=== PATIENT | male | born 1945 | race Caucasian/White ===

== ENCOUNTER 2017-02-17 07:13 | Day surgery (SDC) | payer MEDICARE, BC ==
--- NOTE | 2017-02-03 08:11 | HP ---
CC: Dr. Delatorre * HISTORY AND PHYSICAL: DATE OF PLANNED ADMISSION AND SURGERY: 02/16/17 HISTORY OF PRESENT ILLNESS: Mr. Jon is a 71-year-old white male who is admitted with a large left hydrocele for surgical repair. I have been following Mr. Jon for several years because of bladder outlet obstruction and left scrotal swelling. He has been maintained on tamsulosin 0.4 mg daily with improvement in his voiding. The left scrotal swelling has progressed and has become more symptomatic and started to interfere with his physical activities. Because of the above history and after discussing the options of management, he decided to proceed with the left hydrocelectomy. PAST MEDICAL HISTORY AND SYSTEM REVIEW: He is in very good health. MEDICATIONS: He is on no other medication besides the tamsulosin. ALLERGIES: He denies any allergies to medications. FAMILY HISTORY: Relevant for his brother who had renal carcinoma at the age of 74. PHYSICAL EXAMINATION GENERAL: Pleasant, healthy, and fit looking white male. VITAL SIGNS: Blood pressure 120/70, pulse of 60. HEART: Regular and rhythmic. No murmurs. LUNGS: Clear. ABDOMEN: Soft. No masses, no tenderness and no CVA tenderness. EXTERNAL GENITALIA: He is not circumcised. There is moderate degree of phimosis. The right testis feels normal and there is no right inguinal hernia. There is diffuse soft swelling of the left hemiscrotum measuring about 10 to 12 cm in diameter. It is slightly tender to exam. There is no inguinal hernia noted. The swelling is consistent with a hydrocele, but he could have also a spermatocele. RECTAL: Showed moderately enlarged, but nonsuspicious prostate. IMPRESSION: 1. Moderately symptomatic left hydrocele, possible spermatocele. 2. Bladder outlet obstruction with good response to tamsulosin. PLAN: For left hydrocelectomy. I discussed the operation in detail with the patient. Some of the potential complications including infection and hematoma were discussed. The patient understands that there will be prolonged scrotal swelling after the surgery and it will take several weeks for the swelling to resolve. All his questions were answered. [id number]/[facility] #: [id number] SILVERIO
[~2017-02-17 07:13] MED LIST: Buffered Lidocaine 0.9% SYRIN* 5 ML/SYR SYRINGE INTRADERM ONE
[2017-02-17] MEDS ORDERED: cefTRIAXone(*) 1 GM ADVAN ONE (07:25)
[2017-02-17] MEDS ORDERED: Buffered Lidocaine 0.9% SYRIN* 5 ML/SYR SYRINGE ONE (07:25)
[2017-02-17] MEDS ORDERED: fentaNYL* 50 MCG/ML 2 ML VIAL (100 MCG VIAL) ONE ×2 (08:24→10:23)
[2017-02-17] MEDS ORDERED: Midazolam* 1 MG/ML 2 ML VIAL (2 MG) ONE ×2 (08:24→11:08)
[2017-02-17] MEDS ORDERED: Bupivacaine 0.5% SDV PF* 30 ML VIAL ONE ×2 (08:38→11:31)
[2017-02-17] MEDS ORDERED: Collodion (Flexible)* 120 ML BTL ONE (08:38)
[2017-02-17] MEDS ORDERED: Famotidine IV* 10 MG/ML 2 ML (20 mg) ONE ×2 (08:47→11:31)
[2017-02-17] MEDS ORDERED: Propofol* 10 MG/ML 20 ML BTL IV PUSH ONE (09:16)
[2017-02-17] MEDS ORDERED: Ketorolac INJ* 30 MG/ML 1 ML VIAL ONE (09:16)
[2017-02-17] MEDS ORDERED: Lidocaine 2% PF * 5 ML VIAL ONE (09:16)
[2017-02-17] MEDS ORDERED: Dexamethasone IV* 4 MG/ML 1 ML (4 MG) ONE ×2 (09:16→11:31)
[2017-02-17] MEDS ORDERED: EPHEDrine (Pressors)* 50 MG/ML VIAL ONE (09:20)
[2017-02-17] MEDS ORDERED: Acetaminophen TAB* 325 MG PO PRN (09:28)
[2017-02-17] MEDS ORDERED: fentaNYL* 50 MCG/ML 2 ML VIAL (100 MCG VIAL) IV PRN (09:28)
[2017-02-17] MEDS ORDERED: HYDROmorphone INJ* 1 MG/ML CARPUJECT SYRINGE IV PRN (09:28)
[2017-02-17] MEDS ORDERED: PROCHLORPERAZINE INJ 5 MG/ML 2 ML VIAL IV PRN (09:28)
[2017-02-17] MEDS ORDERED: HYDROcodone/ACETAMIN 5-325 MG* 1 TAB PO PRN (09:28)
[2017-02-17] MEDS ORDERED: DiMENhydriNATE IV* 50 MG/ML VIAL IV PUSH PRN (09:28)
[2017-02-17 11:01] VITALS: BP 119/76
[2017-02-17] MEDS ORDERED: Morphine PF AMP (0.5MG/ML)* 5 MG/10 ML AMP ONE (11:08)
[2017-02-17] MEDS ORDERED: Dexmedetomidine* 200 MCG/2 ML 2 ML VIAL ONE (11:32)
--- NOTE | 2017-02-17 21:34 | OP ---
CC: Dr. Delatorre* OPERATIVE REPORT: DATE OF OPERATION: 02/17/17 - SDS DATE OF : 41 SURGEON: Garrison Carlos MD ANESTHESIOLOGIST: Edwina Yost MD ANESTHESIA: General. PRE-OP DIAGNOSIS: Left hydrocele. POST-OP DIAGNOSIS: Multiloculated left spermatocele. OPERATIVE PROCEDURE: 1. Left scrotal exploration. 2. Left spermatocelectomies. INDICATIONS: Mr. Jon is a 71-year-old white male, who had a long history of left scrotal enlargement. More recently, it became symptomatic and partially interfering with his physical activities. Physical examination showed a 12-cm diameter transilluminating cystic lesion in the left scrotum consistent with a hydrocele. Because of the above history and findings, surgical correction was advised and accepted. PATHOLOGY: Upon left scrotal exploration, there was a large spermatocele measuring about 10 to 12 cm in diameter. There were 2 smaller spermatoceles measuring about 1 cm each. There was no hydrocele noted. The testis looked normal. The hemoclips from vasectomy were noted. There was no inguinal hernia. DESCRIPTION OF PROCEDURE: After successful general anesthesia, the patient was placed in the supine position and was prepped and draped for a scrotal exploration. A transverse incision was carried over the mid anterior left hemiscrotum. The incision was deepened through the dartos muscle. The tunica vaginalis was identified and was dissected from the overlying scrotal wall and was delivered through the incision. An incision was carried over the tunica vaginalis over the testis. The testis was delivered through that incision. The spermatocele was then identified. The avascular plain of the spermatocele was developed and was circumferentially dissected and completely freed until its origin from the epididymis. This dissection was performed without rupturing the spermatocele. The spermatic vessels were identified and preserved. At the origin of the spermatocele from the epididymis, the communication was double tied with 2-0 Vicryl and then divided and the spermatocele was delivered intact and sent to Pathology. The 2 smaller spermatoceles were then dissected and excised. Very good hemostasis was achieved. The tunica vaginalis was then everted and approximated to itself using running locking sutures of 4-0 Vicryl. After making sure there was very good hemostasis, the testis was replaced in the scrotal cavity making sure there was no twisting of the cord. The spermatic vessels were all intact. The testis had a normal vascularity.The scrotal cavity was irrigated with saline. A small Sizerock drain was then placed in the scrotal cavity and brought out through the dependent portion of the scrotum. The Sizerock drain was transfixed to the skin with a 4-0 Prolene suture. The scrotal incision was then closed using running 4-0 Vicryl for the dartos muscle. The skin was closed using interrupted everting sutures of 4-0 chromic. A total of 10 cc of 0.5% Marcaine without epinephrine was used to infiltrate the incision for postoperative analgesia. The patient tolerated the procedure well and left the operating room in good condition. The blood loss was negligible. The specimen was left spermatocele. All the counts were correct. [id number]/[facility] #: [id number] MTDD
== END 2017-02-17 11:46 | disposition home or self-care (01) ==
LOC: OR 07:13
PROVIDERS: ATTEND Urology
DX: N43.42 Spermatocele of epididymis, multiple (principal); Z87.891 Personal history of nicotine dependence; N32.0 Bladder-neck obstruction
CPT/HCPCS: 88304; A9270-GY; J0696; J1100; J1885; J2250; J2704; J3010

== ENCOUNTER 2018-03-03 17:14 | Emergency (ER) | payer MEDICARE, BC ==
[2018-03-03 17:48] VITALS: BP 133/84
--- NOTE | 2018-03-03 18:32 | ED ---
Upper Extremity Pain - HPI Summary HPI Summary: 72 yr old male with the complaint of the right little finger pain, and dislocation. He was fishing, tripped over a root, and broke fall with right hand. He has pain to the right little finger. He initially had deformity and he feels he reduced this by pushing and pulling on it till it went back into place. No numbness to finger tip. - History of Current Complaint Chief Complaint: UCUpperExtremity Stated Complaint: RIGHT LITTLE FINGER INJURY Time Seen by Provider: 03/03/18 17:59 - Allergies/Home Medications Allergies/Adverse Reactions: Allergies Allergy/AdvReac Type Severity Reaction Status Date / Time No Known Allergies Allergy Verified 03/03/18 17:39 PMH/Surg Hx/FS Hx/Imm Hx GI History: Reports: Other GI Disorders - BOWEL OBSTRUCTION A TEEN, OK NOW History: Reports: Other Problems/Disorders - LEFT HYDROCELE Sensory History: Reports: Hx Contacts or Glasses - GLASSES, Hx Hearing Aid - DOESN'T WEAR THEM, "THEY DON'T WORK WELL" Denies: Hx Cataracts, Hx Glaucoma Opthamlomology History: Reports: Hx Contacts or Glasses - GLASSES Denies: Hx Cataracts, Hx Glaucoma - Surgical History Surgery Procedure, Year, and Place: BOWEL OBSTRUCTION 1966 [place]. hydrocele 2017 Hx Anesthesia Reactions: No Infectious Disease History: No Infectious Disease History: Denies: Traveled Outside the [place] in Last 30 Days - Family History Known Family History: Positive: None - Social History Occupation: Retired Alcohol Use: Occasionally Alcohol Amount: 2-3 DRINKS/WEEK Substance Use Type: Reports: None Smoking Status (MU): Former Smoker Type: Cigarettes Amount Used/How Often: 1/2-1 PPD FOR 10 YRS Length of Time of Smoking/Using Tobacco: 10 YRS Have You Smoked in the Last Year: No Review of Systems All Other Systems Reviewed And Are Negative: Yes Physical Exam Triage Information Reviewed: Yes Vital Signs On Initial Exam: Initial Vitals Temp Pulse Resp BP Pulse Ox 98.6 F 72 14 133/84 99 03/03/18 17:40 03/03/18 17:40 03/03/18 17:40 03/03/18 17:40 03/03/18 17:40 Vital Signs Reviewed: Yes Appearance: Positive: Well-Appearing, No Pain Distress Skin: Positive: Warm, Skin Color Reflects Adequate Perfusion Head/Face: Positive: Normal Head/Face Inspection Eyes: Positive: EOMI Neck: Positive: Supple, Nontender Respiratory/Lung Sounds: Positive: Clear to Auscultation, Breath Sounds Present Cardiovascular: Positive: RRR. Negative: Murmur Abdomen Description: Negative: Distended Musculoskeletal: Positive: Other - tender to the right DIP joint area little finger. Mild STS. Some decreased ROM dip joint. Normal color finger tip. Normal two point discrimination Neurological: Positive: Sensory/Motor Intact, Alert, Oriented to Person Place, Time, CN Intact II-III Psychiatric: Positive: Normal Procedures - Splinting Right 5th Digit Pre-Made Type: metal Splint: metal foam wrap around splint Pre-Proc Neuro Vasc Exam: normal Post-Proc Neuro Vasc Exam: normal - Joint Reduction Right Joint Reduction Site: other - little finger Specify Other Joint Reduced: right little finger DIP joint Conscious Sedation: No Reduction Attempts: 1 - successful reduction with return of ROM of the DIP little finger right hand Pre-Procedure NV Exam: Yes - intact cap refill and 2 point discrimination Diagnostics - Vital Signs Vital Signs Temp Pulse Resp BP Pulse Ox 03/03/18 17:40 98.6 F 72 14 133/84 99 - Laboratory Lab Statement: Any lab studies that have been ordered have been reviewed, and results considered in the medical decision making process. - Radiology right little finger pre and post reduction films Xray Interpretation: Positive (See Comments) - dislocation of the DIP joint with small buckle fracture. Radiology Interpretation Completed By: ED Physician - Additional Comments Diagnostic Additional Comments: post reduction film with distal phalynx reduced. Course/Dx - Course Course Of Treatment: 72 yr old with dislocated Distal phalynx and volar buckle fx. This has been reduced and splinted by me with a foam metal splint. - Diagnoses Provider Diagnoses: Closed fracture dislocation of finger Discharge - Sign-Out/Discharge Documenting (check all that apply): Patient Departure All imaging exams completed and their final reports reviewed: No - Discharge Plan Condition: Good Disposition: HOME Patient Education Materials: Finger Dislocation (ED), Closed Reduction (ED), Finger Fracture (ED) Referrals: Onur Cochran DO [Primary Care Provider] - Benitez Ramos MD [Medical Doctor] - - Billing Disposition and Condition Condition: GOOD Disposition: Home
--- NOTE | 2018-03-04 07:56 | RAD ---
HISTORY: pain in finger after deformity, injury fall. COMPARISONS: None VIEWS: 3 , Frontal, lateral, and oblique views of the fifth digit of the right hand FINDINGS: BONE DENSITY: Normal. BONES: There is a probable fracture of the volar plate of the base of the distal phalanx of the fifth digit JOINTS: There is no arthropathy. ALIGNMENT: There is posterior dislocation of the distal phalanx with respect to the middle phalanx at the level of the distal interphalangeal joint. SOFT TISSUES: Unremarkable. OTHER FINDINGS: None. IMPRESSION: FIFTH DIP DISLOCATION WITH PROBABLE VOLAR PLATE FRACTURE R0
--- NOTE | 2018-03-04 08:00 | RAD ---
HISTORY: post reduction COMPARISONS: March 03, 2018 at 6:56 PM VIEWS: 2 , Frontal and lateral views of the fifth digit of the right hand FINDINGS: BONE DENSITY: Normal. BONES: There is mild cortical irregularity of the volar plate of the base of the distal phalanx. JOINTS: There is no arthropathy. ALIGNMENT: There has been interval reduction of the fifth DIP dislocation. SOFT TISSUES: Unremarkable. OTHER FINDINGS: None. IMPRESSION: INTERVAL REDUCTION OF FIFTH DIP DISLOCATION WITH CORTICAL IRREGULARITY CONSISTENT WITH FRACTURE OF THE BASE OF THE DISTAL PHALANX OF THE FIFTH DIGIT R0
--- NOTE | 2018-03-04 09:50 | UC ---
- Progress Note Progress Note: Patient Name: WILL SEGOVIA Medical Record#: [id number] Ordering Physician: Alphonso Crawford MD Acct.#: [id number] : 1945 Age: 72 Sex: M Location: [facility] [place] Exam Date: 03/03/181906 ADM Status: DEP ER Order Information: FINGER RIGHT SMALL Accession Number: [id number] CPT: 83456 HISTORY: post reduction COMPARISONS: March 03, 2018 at 6:56 PM VIEWS: 2 , Frontal and lateral views of the fifth digit of the right hand FINDINGS: BONE DENSITY: Normal. BONES: There is mild cortical irregularity of the volar plate of the base of the distal phalanx. JOINTS: There is no arthropathy. ALIGNMENT: There has been interval reduction of the fifth DIP dislocation. SOFT TISSUES: Unremarkable. OTHER FINDINGS: None. IMPRESSION: INTERVAL REDUCTION OF FIFTH DIP DISLOCATION WITH CORTICAL IRREGULARITY CONSISTENT WITH FRACTURE OF THE BASE OF THE DISTAL PHALANX OF THE FIFTH DIGIT R0 <Electronically signed by Edgar Bryant MD in OV> 03/04/18755 Dictated By: Edgar Bryant MD Dictated Date/Time: 03/04/18755 Transcribed Date/Time: 03/04/18754 Copy to: CC:Onur Cochran DO; Alphonso Crawford MD Imaging - [facility] Imaging [facility] Urgent [facility] [address] [address] ph ([phone]) ph ([phone]) ph ([phone]) This report is only to be considered final once signed by the Provider(s) as displayed in the "<Electronically Signed by >" field (s). Absence of a signature indicates the report is in a draft status and still needs to be finalized. In the event this document was created by someone other than the signing Provider, the individual initiating the document will be listed in the "Entered by:" or "Dictated by:" sousa. 1 of 1 Course/Dx - Diagnoses Provider Diagnoses: Closed fracture dislocation of finger Discharge - Sign-Out/Discharge Documenting (check all that apply): Post-Discharge Follow Up All imaging exams completed and their final reports reviewed: Yes - Discharge Plan Condition: Good Disposition: HOME Patient Education Materials: Finger Fracture (ED), Finger Dislocation (ED), Closed Reduction (ED) Referrals: Benitez Ramos MD [Medical Doctor] - Onur Cochran DO [Primary Care Provider] - - Billing Disposition and Condition Condition: GOOD Disposition: Home
== END 2018-03-03 20:20 | disposition home or self-care (01) ==
LOC: UCCORT 17:14
DX: S62.636A Displaced fracture of distal phalanx of right little finger, initial encounter for closed fracture (principal); W01.0XXA Fall on same level from slipping, tripping and stumbling without subsequent striking against object, initial encounter; Y93.89 Activity, other specified; Y92.9 Unspecified place or not applicable; Z87.891 Personal history of nicotine dependence
CPT/HCPCS: 26670; 26755; 73140; 99211; G0463